=== PATIENT | male | born 1995 | race Two or more races ===

== ENCOUNTER 2024-10-18 18:31 | Inpatient (IN) | payer BC, MEDICAID ==
[~2024-10-18] VITALS: Ht 172.7 cm; Wt 76.3 kg
--- NOTE | 2024-10-18 19:45 | ED.PDOC ---
GI ASSESSMENT HPI Comments 28 y.o male presents to the ED for a chief complaint of RLQ pain that started 4 hours ago. Patient reports presents s/p coughing, felt a pressure sensation which is now sharp in nature and radiating to his right side. Patient denies any nausea, vomiting, diarrhea, fever, or chills. He denies any previous abdominal complaints or surgeries. Chief Complaint: Abdominal Pain Time Seen by MD: 19:40 Primary Care Provider: NONE Reviewed Notes: Nurses Notes, Medications, Allergies Allergies: Coded Allergies: NO KNOWN ALLERGIES (Unverified , 10/18/24) Information Source: Patient Mode of Arrival: Ambulatory Timing: Hours (4) Duration: Since onset Quality: Sharp Vomitus: None Stool: Normal Severity: Moderate Recent: None Recent Hx of: None Pain Location: RLQ Modifying Factors: Nothing Associated sign and symptoms: Abdominal Pain Past Medical History PAST MEDICAL HISTORY: Denies Surgical History: Denies all surgeries Family History Family History: Reviewed,noncontributory to illness Social History Smoker: Non-Smoker Alcohol: Denies ETOH Use Drugs: Denies Drug Use Lives In: Home Constitutional: denies: chills, diaphoresis, fatigue, fever, malaise, sweats, weakness, others EENTM: denies: blurred vision, double vision, ear bleeding, ear discharge, ear drainage, ear pain, ear ringing, eye pain, eye redness, hearing loss, mouth pain, mouth swelling, nasal discharge, nose bleeding, nose congestion, nose pain, photophobia, tearing, throat pain, throat swelling, voice changes, others Respiratory: reports: cough; denies: hemoptysis, orthopnea, SOB at rest, shortness of breath, SOB with excertion, stridor, wheezing, others Cardiovascular: denies: chest pain, dizzy spells, diaphoresis, Dyspnea on exertion, edema, irregular heart beat, left arm pain, lightheadedness, palpitations, PND, syncope, others Gastrointestinal: reports: abdominal pain; denies: abdomen distended, blood streaked bowels, constipated, diarrhea, dysphagia, difficulty swallowing, hematemesis, melena, nausea, poor appetite, poor fluid intake, rectal bleeding, rectal pain, vomiting, others Genitourinary: denies: burning, dysuria, flank pain, frequency, hematuria, incontinence, penile discharge, penile sore, pain, testicle pain, testicle swelling, urgency, others Neurological: denies: dizziness, fainting, headache, left sided numbness, left sided weakness, numbness, paresthesia, pre-existing deficit, right sided numbness, right sided weakness, seizure, speech problems, tingling, tremors, weakness, others Musculoskeletal: denies: back pain, gout, joint pain, joint swelling, muscle pain, muscle stiffness, neck pain, others Integumetry: denies: bruises, change in color, change in hair/nails, dryness, laceration, lesions, lumps, rash, wounds, others Allergic/Immunocompromised: denies: Difficulty Healing, Frequent Infections, Hives, Itching, others Hematologic/Lymphatic: denies: anemia, blood clots, easy bleeding, easy bruising, swollen glands, others Endocrine: denies: excessive hunger, excessive sweating, excessive thirst, excessive urination, flushing, intolerance to cold, intolerance to heat, unexplained weight gain, unexplained weight loss, others Psychiatric: denies: anxiety, bipolar disorder, depression, hopeless, panic disorder, schizophrenia, sleepless, suicidal, others All Other Systems: Reviewed and Negative Physical Exam General Appearance: Mild Distress HEENT: Normal ENT Inspection, Pharynx Normal, TMs Normal Neck: Full Range of Motion, Non-Tender, Normal, Normal Inspection Respiratory: Chest Non-Tender, Lungs Clear, No Accessory Muscle Use, No Respiratory Distress, Normal Breath Sounds Cardiovascular: No Edema, No JVD, No Murmur, No Gallop, Normal Peripheral Pulses, Regular Rate/Rhythm Breast Exam: Deferred Gastrointestinal: RLQ, Tenderness Genitalia: Deferred Pelvic: Deferred Rectal: Deferred Extremities: No calf tenderness, Normal capillary refill, Normal inspection, Normal range of motion, Non-tender, No pedal edema Musculoskeletal : Apperance: Normal Neurologic: Alert, band and cuff cutter II-XII nml as Tested, No Motor Deficits, Normal Affect, Normal Mood, No Sensory Deficits Cerebellar Function: Normal Reflexes: Normal Skin: Dry, Normal Color, Warm Lymphatic: No Adenopathy Was a procedure done? Was a procedure done?: No GI differential Dx Differential Diagnosis: Appendicitis, Constipation, Esophagitis, Gastroenteritis, Inflammatory BD X-Ray, Labs, Meds, VS Vital Signs Date Time Temp Pulse Resp B/P (MAP) Pulse Ox O2 Delivery O2 Flow Rate FiO2 10/18/24 18:40 98.7 75 18 127/83 (98) 100 Lab Test 10/18/24 19:44 10/18/24 18:40 Range/Units White Blood Count 8.5 4.4-10.8 10^3/uL Red Blood Count 5.04 4.5-5.90 10^6/uL Hemoglobin 15.1 13.5-17.5 g/dL Hematocrit 44.3 41.0-53.0 % Mean Corpuscular Volume 88.0 80.0-100.0 fL Mean Corpuscular Hemoglobin 30.0 28.0-32.0 pg Mean Corpuscular Hemoglobin Concent 34.1 32.0-36.0 g/dL Red Cell Distribution Width 12.8 11.8-14.3 % Platelet Count 165 140-450 10^3/uL Mean Platelet Volume 9.7 6.9-10.8 fL Neutrophils (%) (Auto) 59.9 37.0-80.0 % Lymphocytes (%) (Auto) 31.6 10.0-50.0 % Monocytes (%) (Auto) 6.4 0.0-12.0 % Eosinophils (%) (Auto) 1.5 0.0-7.0 % Basophils (%) (Auto) 0.6 0.0-2.0 % Neutrophils # (Auto) 5.1 1.6-8.6 10 ^3/uL Lymphocytes # (Auto) 2.7 0.4-5.4 10 ^3/uL Monocytes # (Auto) 0.5 0-1.3 10 ^3/uL Eosinophils # (Auto) 0.1 0-0.8 10 ^3/uL Basophils # (Auto) 0.1 0-0.2 10 ^3/uL Nucleated Red Blood Cells 0.1 % Sodium Level 139 136-145 mmol/L Potassium Level 3.7 3.5-5.1 mmol/L Chloride Level 106 98-107 mmol/L Carbon Dioxide Level 27 20-31 mmol/L Anion Gap 6 5-15 Blood Urea Nitrogen 10 9-23 mg/dL Creatinine 0.97 0.700-1.30 mg/dL Glomerular Filtration Rate Calc 109 >90 mL/min BUN/Creatinine Ratio 10.3 10.0-20.0 Serum Glucose 96 74-106 mg/dL Calcium Level 9.8 8.7-10.4 mg/dL Total Bilirubin 0.3 0.2-1.0 mg/dL Aspartate Amino Transferase (AST) 21 13-40 U/L Alanine Aminotransferase (ALT) 25 7-40 U/L Alkaline Phosphatase 87 46-116 U/L Total Protein 7.6 5.7-8.2 g/dL Albumin 4.7 3.2-4.8 g/dL Urine Color Light-yellow Yellow Urine Clarity Clear Clear Urine pH 6.0 5.0-9.0 Urine Specific [place] 1.012 1.001-1.035 Urine Protein Negative Negative Urine Ketones Negative Negative Urine Blood Negative Negative /uL Urine Nitrite Negative Negative Urine Bilirubin Negative Negative Urine Urobilinogen Normal Negative mg/dL Urine Leukocyte Esterase Negative Negative /uL Urine RBC None seen 0 - 3 /hpf Urine WBC <1 0 - 3 /hpf Urine Squamous Epithelial Cells None seen <5 /hpf Urine Bacteria None seen None Seen /hpf Urine Glucose Normal Normal mg/dL Exam: CT CT AB PEL WO CON-NO ORAL OR IV History: RLQ PAIN Comparison Study: None Technique: Multidetector spiral CT of the abdomen was performed from lung bases to pubic symphysis. Imaging was performed without IV contrast. Axial, coronal and sagittal multiplanar reformats were obtained from the axial data set by the technologist. Radiation Dose : 1. Abdomen/Pelvis: CTDIvol 8.8 mGy, DLP 466.09 mGy*cm. Findings: Evaluation of solid organs is limited due to lack of intravenous contrast use. Lung Bases: No acute or significant lung base finding. Normal heart size. No pleural or pericardial effusion. Liver: The liver is normal in size. No focal lesions. Gallbladder and Biliary Tree: Unremarkable Spleen: Unremarkable Pancreas: The pancreas is grossly normal in appearance. Adrenal Glands: Unremarkable Kidneys: Kidneys are grossly normal without calculi or hydronephrosis. Bladder: Grossly unremarkable for degree of distention. Bowel: The stomach is grossly normal in appearance. Small bowel and colon are normal in caliber and distribution. Minimal prominence of the appendix measuring up to 6 mm with trace adjacent fat stranding. Mild/ developing appendicitis can not be excluded. Ascites: Absent Lymphadenopathy: No mesenteric, retroperitoneal or periportal lymphadenopathy. Abdominal Wall and Mesentery: Moderate bilateral fat containing inguinal hernias. Vasculature: The visualized abdominal aorta is normal in size and caliber. Evaluation of abdominal and pelvic vessels is limited due to lack of intravenous contrast. Pelvic Organs: Unremarkable Musculoskeletal: No aggressive focal bony lesions, acute fractures or dislocation. IMPRESSION: 1. Minimal prominence of the appendix measuring up to 6 mm with trace adjacent fat stranding. Mild/ developing appendicitis can not be excluded. Recommend correlation with point tenderness and laboratory values. Radiation optimization: All CT scans at this facility use at least one of these dose optimization techniques: automated exposure control mA and/or kV adjustment per patient size (includes targeted exams where dose is matched to clinical indication) or iterative reconstruction. X-Ray, Labs, Meds, VS Comment CT abdomen pelvis IMPRESSION: 1. Minimal prominence of the appendix measuring up to 6 mm with trace adjacent fat stranding. Mild/ developing appendicitis can not be excluded. Recommend correlation with point tenderness and laboratory values. Radiation optimization: All CT scans at this facility use at least one of these dose optimization techniques: automated exposure control mA and/or kV adjustment per patient size (includes targeted exams where dose is matched to clinical indication) or iterative reconstruction. Patient will be admitted for developing appendicitis Patient be started IV Flagyl and Rocephin Time of 1ST Reevaluation: 19:43 Reevaluation 1ST: Unchanged Patient Education/Counseling: Diagnosis, Treatment, Prognosis Family Education/Counseling: No Family Present Departure 1 Departure Time of Disposition: 21:42 Impression: Primary Impression: Appendicitis Qualified Codes: K35.30 - Acute appendicitis with localized peritonitis, without perforation or gangrene Disposition: ADMITTED INPATIENT Condition: Fair Discharged With: Self Critical Care Note Critical Care Time?: No Stability Stability form required: No I personally scribed for JOSEPH RAMIRES FERN CUTTER ([email or web address]) on 10/18/24 at 19:45. Electronically submitted by Carolina Izaguirre ([facility]). I personally scribed for JOSEPH RAMIRES FERN CUTTER ([email or web address]) on 10/18/24 at 21:38. Electronically submitted by Carolina Izaguirre ([facility]). JOSEPH RAMIRES FERN CUTTER Oct 18, 2024 19:45
[2024-10-18 20:04] LABS: Basophils # (auto) 0.1 10 ^3/uL (0-0.2); Basophils % (auto) 0.6 % (0.0-2.0); Eosinophils # (auto) 0.1 10 ^3/uL (0-0.8); Eosinophils % (auto) 1.5 % (0.0-7.0); Hematocrit 44.3 % (41.0-53.0); Hemoglobin 15.1 g/dL (13.5-17.5); Lymphocytes # (auto) 2.7 10 ^3/uL (0.4-5.4); Lymphocytes % (auto) 31.6 % (10.0-50.0); Mean Corpuscular Hgb Conc. 34.1 g/dL (32.0-36.0); Monocytes # (auto) 0.5 10 ^3/uL (0-1.3); Monocytes % (auto) 6.4 % (0.0-12.0); Neutrophils # (auto) 5.1 10 ^3/uL (1.6-8.6); Neutrophils % (auto) 59.9 % (37.0-80.0); Nucleated Red Blood Cells % 0.1 %; Platelet Count (auto) 165 10^3/uL (140-450); Red Blood Cells 5.04 10^6/uL (4.5-5.90); Red Cell Distribution Width 12.8 % (11.8-14.3); White Blood Cell 8.5 10^3/uL (4.4-10.8)
[2024-10-18 20:09] LABS: Urine Bacteria None Seen /hpf (None Seen)
[2024-10-18 20:20] LABS: Urine Blood Negative /uL (Negative); Urine Clarity Clear (Clear); Urine Color Light-Yellow (Yellow); Urine Protein, UAD Negative (Negative); Urine Specific Gravity 1.012 (1.001-1.035); Urine Squamous Epithelial Cell None Seen /hpf (<5); Urine Urobilinogen Normal (Negative); Urine WBC <1 /hpf (0 - 3)
[2024-10-18 20:24] LABS: Alanine Aminotransferase 25 U/L (7-40); Albumin 4.7 g/dL (3.2-4.8); Alkaline Phosphatase 87 U/L (46-116); Anion Gap 6 (5-15); Aspartate Aminotransferase 21 U/L (13-40); BUN/Creatinine Ratio 10.3 (10.0-20.0); Bilirubin, Total 0.3 mg/dL (0.2-1.0); Blood Urea Nitrogen 10 mg/dL (9-23); Calcium 9.8 mg/dL (8.7-10.4); Carbon Dioxide 27 mmol/L (20-31); Chloride 106 mmol/L (98-107); Glucose 96 mg/dL (74-106); Potassium 3.7 mmol/L (3.5-5.1); Sodium 139 mmol/L (136-145); Total Protein 7.6 g/dL (5.7-8.2)
--- NOTE | 2024-10-18 21:32 | DVH ---
Exam: CT CT AB PEL WO CON-NO ORAL OR IV History: RLQ PAIN Comparison Study: None Technique: Multidetector spiral CT of the abdomen was performed from lung bases to pubic symphysis. Imaging was performed without IV contrast. Axial, coronal and sagittal multiplanar reformats were ob tained from the axial data set by the technologist. Radiation Dose : 1. Abdomen/Pelvis: CTDIvol 8.8 mGy, DLP 466.09 mGy*cm. Findings: Evaluation of solid organs is limited due to lack of intravenous contrast use. Lung Bases: No acute or significant lung base finding. Normal heart size. No pleural or pericardial effusion. Liver: The liver is normal in size. No focal lesions. Gallbladder and Biliary Tree: Unremarkable Spleen: Unremarkable Pancreas: The pancreas is grossly normal in appearance. Adrenal Glands: Unremarkable Kidneys: Kidneys are grossly normal without calculi or hydronephrosis. Bladder: Grossly unremarkable for degree of distention. Bowel: The stomach is grossly normal in appearance. Small bowel and colon are normal in caliber and d istribution. Minimal prominence of the appendix measuring up to 6 mm with trace adjacent fat strandi ng. Mild/ developing appendicitis can not be excluded. Ascites: Absent Lymphadenopathy: No mesenteric, retroperitoneal or periportal lymphadenopathy. Abdominal Wall and Mesentery: Moderate bilateral fat containing inguinal hernias. Vasculature: The visualized abdominal aorta is normal in size and caliber. Evaluation of abdominal a nd pelvic vessels is limited due to lack of intravenous contrast. Pelvic Organs: Unremarkable Musculoskeletal: No aggressive focal bony lesions, acute fractures or dislocation. IMPRESSION: 1. Minimal prominence of the appendix measuring up to 6 mm with trace adjacent fat stranding. Mild/ d eveloping appendicitis can not be excluded. Recommend correlation with point tenderness and laborator y values. Radiation optimization: All CT scans at this facility use at least one of these dose optimization mitesh hniques: automated exposure control mA and/or kV adjustment per patient size (includes targeted exam s where dose is matched to clinical indication) or iterative reconstruction.
[2024-10-18] MEDS: MORPHINE SULFATE 4 MG/ML SYR/VIAL IV ONE (22:53)
[2024-10-18] MEDS: metroNIDAZOLE 500MG/100ML 100 ML IV ONE (22:53)
[2024-10-18] MEDS: ONDANSETRON HCL 4 MG/2 ML VIAL IV ONE (22:53)
[2024-10-18] MEDS: cefTRIAXone 1GM/50ML D5W 50 ML IV ONE (22:53)
[2024-10-18 23:00] VITALS: PULSE 66; RESP 20; O2SAT 99
[2024-10-18] MEDS ORDERED: ONDANSETRON HCL 4 MG/2 ML VIAL IV PRN (23:30)
--- NOTE | 2024-10-18 23:45 | DVHHP2 ---
History of Present Illness Reason for Visit: Abdominal pain History of Present Illness 28-year-old male presents for evaluation of abdominal pain. He reports a one day history of right lower quadrant abdominal pain that is sharp in nature and radiates to his lower back. Also reports episodes of nausea. He states having intermittent chills. Denies any other acute complaints at the moment. Past Medical History Denies Past Surgical History None Family History Noncontributory Smoke: No ALCOHOL: none Drugs: None Lives: with Family Review of Systems Review of Systems Review of systems are currently negative otherwise addressed in HPI. Allergies: Coded Allergies: NO KNOWN ALLERGIES (Unverified , 10/18/24) Medications Current Medications Medications Dose Ordered Sig/Rickey Route Start Time Stop Time Status Last Admin Dose Admin Piperacillin Sod/ Tazobactam Sod 100 ml @ 25 mls/hr Q6HR IV 10/19/24 00:00 UNV Pantoprazole Sodium 40 mg DAILY IV 10/19/24 10:00 UNV Ondansetron HCl 4 mg Q4HP PRN IV 10/18/24 23:30 UNV Morphine Sulfate 2 mg Q4HPRN PRN IV 10/18/24 23:30 UNV Exam Vital Signs Vital Signs Date Time Temp Pulse Resp B/P (MAP) Pulse Ox O2 Delivery O2 Flow Rate FiO2 10/18/24 23:00 68 20 124/76 (92) 100 10/18/24 23:00 Room Air* 0 21 10/18/24 18:40 98.7 Exam Gen: 28-year-old male in mild distress Skin: Warm, dry, normal color and texture, no rash. HEENT: Normocephalic atraumatic, mucous membranes moist and pink. Neck: Cervical and supraclavicular nodes normal without enlargement, trachea is midline, thyroid gland is normal without masses. Pulmonary: Clear to auscultation and percussion bilaterally. Cardiac: Regular rate and rhythm. No murmur Abdomen: Soft, right lower quadrant tenderness, nondistended, bowel sounds present all 4 quadrants, no guarding, no rigidity, no organomegaly. Extremities: No cyanosis, clubbing, no edema Neuro: Cranial nerves II through XII grossly intact, normal affect and speech, no focal motor deficits. Labs/Xrays ORDERING PHYSICIAN: HERBIE JOHN MD PROCEDURE(s): ABPL - CT AB PEL WO CON-NO ORAL OR IV REASON: RLQ PAIN ORDER NUMBER(s): [id number], ACCESSION NUMBER(s): [id number] Exam: CT CT AB PEL WO CON-NO ORAL OR IV History: RLQ PAIN Comparison Study: None Technique: Multidetector spiral CT of the abdomen was performed from lung bases to pubic symphysis. Imaging was performed without IV contrast. Axial, coronal and sagittal multiplanar reformats were obtained from the axial data set by the technologist. Radiation Dose : 1. Abdomen/Pelvis: CTDIvol 8.8 mGy, DLP 466.09 mGy*cm. Findings: Evaluation of solid organs is limited due to lack of intravenous contrast use. Lung Bases: No acute or significant lung base finding. Normal heart size. No pleural or pericardial effusion. Liver: The liver is normal in size. No focal lesions. Gallbladder and Biliary Tree: Unremarkable Spleen: Unremarkable Pancreas: The pancreas is grossly normal in appearance. Adrenal Glands: Unremarkable Kidneys: Kidneys are grossly normal without calculi or hydronephrosis. Bladder: Grossly unremarkable for degree of distention. Bowel: The stomach is grossly normal in appearance. Small bowel and colon are normal in caliber and distribution. Minimal prominence of the appendix measuring up to 6 mm with trace adjacent fat stranding. Mild/ developing appendicitis can not be excluded. Ascites: Absent Lymphadenopathy: No mesenteric, retroperitoneal or periportal lymphadenopathy. Abdominal Wall and Mesentery: Moderate bilateral fat containing inguinal hernias. Vasculature: The visualized abdominal aorta is normal in size and caliber. Evaluation of abdominal and pelvic vessels is limited due to lack of intravenous contrast. Pelvic Organs: Unremarkable Musculoskeletal: No aggressive focal bony lesions, acute fractures or dislocation. IMPRESSION: 1. Minimal prominence of the appendix measuring up to 6 mm with trace adjacent fat stranding. Mild/ developing appendicitis can not be excluded. Recommend correlation with point tenderness and laboratory values. Radiation optimization: All CT scans at this facility use at least one of these dose optimization techniques: automated exposure control mA and/or kV adjustment per patient size (includes targeted exams where dose is matched to clinical indication) or iterative reconstruction. Labs Test 10/18/24 19:44 10/18/24 18:40 Range/Units White Blood Count 8.5 4.4-10.8 10^3/uL Red Blood Count 5.04 4.5-5.90 10^6/uL Hemoglobin 15.1 13.5-17.5 g/dL Hematocrit 44.3 41.0-53.0 % Mean Corpuscular Volume 88.0 80.0-100.0 fL Mean Corpuscular Hemoglobin 30.0 28.0-32.0 pg Mean Corpuscular Hemoglobin Concent 34.1 32.0-36.0 g/dL Red Cell Distribution Width 12.8 11.8-14.3 % Platelet Count 165 140-450 10^3/uL Mean Platelet Volume 9.7 6.9-10.8 fL Neutrophils (%) (Auto) 59.9 37.0-80.0 % Lymphocytes (%) (Auto) 31.6 10.0-50.0 % Monocytes (%) (Auto) 6.4 0.0-12.0 % Eosinophils (%) (Auto) 1.5 0.0-7.0 % Basophils (%) (Auto) 0.6 0.0-2.0 % Neutrophils # (Auto) 5.1 1.6-8.6 10 ^3/uL Lymphocytes # (Auto) 2.7 0.4-5.4 10 ^3/uL Monocytes # (Auto) 0.5 0-1.3 10 ^3/uL Eosinophils # (Auto) 0.1 0-0.8 10 ^3/uL Basophils # (Auto) 0.1 0-0.2 10 ^3/uL Nucleated Red Blood Cells 0.1 % Sodium Level 139 136-145 mmol/L Potassium Level 3.7 3.5-5.1 mmol/L Chloride Level 106 98-107 mmol/L Carbon Dioxide Level 27 20-31 mmol/L Anion Gap 6 5-15 Blood Urea Nitrogen 10 9-23 mg/dL Creatinine 0.97 0.700-1.30 mg/dL Glomerular Filtration Rate Calc 109 >90 mL/min BUN/Creatinine Ratio 10.3 10.0-20.0 Serum Glucose 96 74-106 mg/dL Calcium Level 9.8 8.7-10.4 mg/dL Total Bilirubin 0.3 0.2-1.0 mg/dL Aspartate Amino Transferase (AST) 21 13-40 U/L Alanine Aminotransferase (ALT) 25 7-40 U/L Alkaline Phosphatase 87 46-116 U/L Total Protein 7.6 5.7-8.2 g/dL Albumin 4.7 3.2-4.8 g/dL Urine Color Light-yellow Yellow Urine Clarity Clear Clear Urine pH 6.0 5.0-9.0 Urine Specific [place] 1.012 1.001-1.035 Urine Protein Negative Negative Urine Ketones Negative Negative Urine Blood Negative Negative /uL Urine Nitrite Negative Negative Urine Bilirubin Negative Negative Urine Urobilinogen Normal Negative mg/dL Urine Leukocyte Esterase Negative Negative /uL Urine RBC None seen 0 - 3 /hpf Urine WBC <1 0 - 3 /hpf Urine Squamous Epithelial Cells None seen <5 /hpf Urine Bacteria None seen None Seen /hpf Urine Glucose Normal Normal mg/dL Assessment/Plan Assessment/Plan Assessment Acute appendicitis Acute abdominal pain Plan Admit the patient to [facility] to the hospitalist Surgical consultation Zosyn IV Maintenance IV fluids Pain management NPO Continue treatment per orders. Plan discussed with: Patient My Orders Orders - RAMONE INGRAM Procedure Category Date Status Time Piperacillin-Tazob PHA 10/19/24 Logged 3.375gm (Zosyn 3.375g 00:00 Sodium Chloride 0.9% PHA 10/18/24 Logged 23:30 Pantoprazole PHA 10/19/24 Logged (Protonix) 10:00 Basic Metabolic Panel LAB 10/19/24 Verified 04:00 Admit ADMIT 10/18/24 Transmitted 23:26 Ondansetron Hcl PHA 10/18/24 Logged (Zofran) 23:30 Complete Blood Count LAB 10/19/24 Verified 04:00 Npo (Nothing By DIET 10/19/24 Transmitted Mouth) Diet Breakfast Condition: Stable BRITTANI 10/18/24 In Process 23:26 Bedrest With Bathroom BRITTANI 10/18/24 In Process Privileg 23:26 Morphine Sulfate PHA 10/18/24 Logged Injection 23:30 PTPTT LAB 10/18/24 Logged 23:26 Chest Xray 1 View XY 10/18/24 Logged 23:26 Type And Screen BBK 10/18/24 Logged 23:26 Date of Service: Oct 18, 2024 Billing Provider: RAMONE INGRAM Common Visit Codes: [id number] INP/OBS CARE (HIGH) RAMONE INGRAM Oct 18, 2024 23:45
[2024-10-19] VITALS (7 sets, daily range): BP systolic 101–125; BP diastolic 52–71; PULSE 54–72; RESP 16–20; TEMP 97.8–98.4; O2SAT 98–100
--- NOTE | 2024-10-19 00:01 | DVH ---
EXAM: XY CHEST XRAY 1 VIEW CLINICAL HISTORY: preop TECHNIQUE: Single AP view of the chest WID: COMPARISON: None FINDINGS: Lines and tubes: None Chest: The heart size and pulmonary vasculature is within normal limits. No pleural effusion, pneumothorax, or consolidation. The osseous structures are grossly intact. IMPRESSION: No acute cardiopulmonary abnormality.
[2024-10-19 00:11] LABS: INR 1.07 (0.9-1.15); Partial Thromboplastin Time 26.5 SEC (24.5-34.5); Prothrombin Time 11.3 sec (9.3-11.8)
[2024-10-19] MEDS: SODIUM CHLORIDE 0.9% 1,000 ML IV ONE (01:18)
[2024-10-19] MEDS: PIPERACILLIN-TAZOB 3.375GM 100 ML IV SCH (01:35)
[2024-10-19] MEDS: MORPHINE SULFATE INJ 2 MG/ml SYRG IV PRN (01:35)
[2024-10-19 04:04] LABS: Potassium 3.7 mmol/L (3.5-5.1); Sodium 140 mmol/L (136-145)
[2024-10-19 04:05] LABS: Anion Gap 8 (5-15); Calcium 9.1 mg/dL (8.7-10.4); Carbon Dioxide 22 mmol/L (20-31)
[2024-10-19 04:10] LABS: BUN/Creatinine Ratio 10.3 (10.0-20.0); Basophils # (auto) 0.1 10 ^3/uL (0-0.2); Basophils % (auto) 0.5 % (0.0-2.0); Eosinophils # (auto) 0.1 10 ^3/uL (0-0.8); Eosinophils % (auto) 0.9 % (0.0-7.0); Glucose 96 mg/dL (74-106); Hematocrit 41.5 % (41.0-53.0); Hemoglobin 13.9 g/dL (13.5-17.5); Lymphocytes # (auto) 2.5 10 ^3/uL (0.4-5.4); Lymphocytes % (auto) 22.7 % (10.0-50.0); Mean Corpuscular Hemoglobin 30.1 pg (28.0-32.0); Mean Corpuscular Hgb Conc. 33.4 g/dL (32.0-36.0); Mean Corpuscular Volume 89.9 fL (80.0-100.0); Monocytes # (auto) 0.8 10 ^3/uL (0-1.3); Neutrophils # (auto) 7.6 10 ^3/uL (1.6-8.6); Neutrophils % (auto) 68.9 % (37.0-80.0); Nucleated Red Blood Cells % 0.1 %; Platelet Count (auto) 153 10^3/uL (140-450); Red Blood Cells 4.62 10^6/uL (4.5-5.90)
[2024-10-19 04:13] LABS: Blood Urea Nitrogen 8 mg/dL (9-23); Chloride 110 mmol/L (98-107)
[2024-10-19] MEDS: PANTOPRAZOLE 40 MG/10 ML VIAL INJ IV SCH (09:45)
--- NOTE | 2024-10-19 13:13 | DVHPN2 ---
Changes from previous H/P or p: No Changes Objective Vitals Vital Signs Date Time Temp Pulse Resp B/P (MAP) Pulse Ox O2 Delivery O2 Flow Rate FiO2 10/19/24 10:15 50 18 105/56 10/19/24 09:02 98.3 99 98.3 10/19/24 08:00 Room Air* 0 21 Intake/Output Intake and Output 10/19/24 07:00 Intake Total 125 ml Balance 125 ml Intake IV Total 125 ml # Voids 1 Medications Current Medications Medications Dose Ordered Sig/Rickey Route Start Time Stop Time Status Last Admin Dose Admin Piperacillin Sod/ Tazobactam Sod 100 ml @ 25 mls/hr Q6HR IV 10/19/24 00:00 10/19/24 13:03 25 MLS/HR Pantoprazole Sodium 40 mg DAILY IV 10/19/24 10:00 10/19/24 09:45 40 MG Ondansetron HCl 4 mg Q4HP PRN IV 10/18/24 23:30 Morphine Sulfate 2 mg Q4HPRN PRN IV 10/18/24 23:30 10/19/24 09:45 2 MG Laboratory Results Laboratory Tests 10/19/24 03:38 Chemistry Test 10/18/24 19:44 10/19/24 03:38 Albumin 4.7 g/dL (3.2-4.8) Calcium Level 9.8 mg/dL (8.7-10.4) 9.1 mg/dL (8.7-10.4) Total Protein 7.6 g/dL (5.7-8.2) Coagulation Test 10/18/24 23:48 Prothrombin Time 11.3 sec (9.3-11.8) Prothrombin Time INR 1.07 (0.9-1.15) Activated Partial Thromboplast Time 26.5 SEC (24.5-34.5) LFT Test 10/18/24 19:44 Alanine Aminotransferase (ALT) 25 U/L (7-40) Alkaline Phosphatase 87 U/L (46-116) Aspartate Amino Transferase (AST) 21 U/L (13-40) Total Bilirubin 0.3 mg/dL (0.2-1.0) Urinalysis Test 10/18/24 18:40 Urine Color Light-yellow (Yellow) Urine Clarity Clear (Clear) Urine pH 6.0 (5.0-9.0) Urine Specific [place] 1.012 (1.001-1.035) Urine Protein Negative (Negative) Urine Ketones Negative (Negative) Urine Blood Negative /uL (Negative) Urine Nitrite Negative (Negative) Urine Bilirubin Negative (Negative) Urine Urobilinogen Normal mg/dL (Negative) Urine Leukocyte Esterase Negative /uL (Negative) Urine RBC None seen /hpf (0 - 3) Urine WBC <1 /hpf (0 - 3) Urine Squamous Epithelial Cells None seen /hpf (<5) Urine Bacteria None seen /hpf (None Seen) Urine Glucose Normal mg/dL (Normal) Labs and/or images reviewed: Labs reviewed by me, Image(s) reviewed by me Assessment/Plan Assessment/Plan Acute right lower quadrant abdominal Secondary to acute appendicitis Acute appendicitis: Zosyn pantoprazole consult for Dr. Pike who is covering for Dr. Hernandez Acute dehydration: IV fluids Plan discussed with: Patient Date of Service: Oct 19, 2024 Billing Provider: ZAINAB MANCUSO MD Common Visit Codes: [id number] INP/OBS CARE(HIGH) ZAINAB MANCUSO MD Oct 19, 2024 13:13
[2024-10-19] MEDS: ACETAMINOPHEN/CODEINE#3 (300/30mg) TAB PO PRN (15:57)
--- NOTE | 2024-10-19 16:01 | DVH ---
EXAM: XY CHEST XRAY 1 VIEW TECHNIQUE: Single frontal chest radiograph CLINICAL HISTORY: repeat x-ray requested by Dr. Hitchcock for VQ scan comparison COMPARISON: XY CHEST XRAY 1 VIEW on DOS: 10/18/24 Findings/Impression: Frontal chest radiograph demonstrates no acute osseous or superficial soft tissue abnormalities. The trachea is midline. The cardiac silhouette and mediastinum are within normal limits. No pneumothorax, pleural effusions, or consolidations.
[2024-10-20] VITALS (10 sets, daily range): BP systolic 97–112; BP diastolic 48–68; PULSE 54–89; RESP 16–19; TEMP 97.8–98.2; O2SAT 92–100
[2024-10-20] MEDS ORDERED: LIDOCAINE 2% JELLY 11ml (GLYDO) ONE (09:35)
[2024-10-20] MEDS ORDERED: BUPIVACAINE W/ EPINEPH 0.5% INJ 50ML MDV IJ ONE (09:36)
[2024-10-20] MEDS ORDERED: SUCCINYLCHOLINE CHLORIDE 20 MG/ML 10ML VIAL IV ONE (09:36)
[2024-10-20] MEDS ORDERED: MIDAZOLAM HCL 2MG/2ML 2ml VIAL (1mg/ml) ONE (09:45)
[2024-10-20] MEDS ORDERED: fentaNYL CITRATE 100 MCG/2 ML VL ONE (09:45)
[2024-10-20] MEDS ORDERED: MEPERIDINE HCL (25 MG/ML) 1ML VIAL ONE (09:45)
[2024-10-20] MEDS ORDERED: DexAMETHasone SOD PHOS 10MG/1ML VIAL INJ ONE (09:46)
[2024-10-20] MEDS ORDERED: PROPOFOL 10 MG/ML 20 ML IV ONE (09:46)
[2024-10-20] MEDS ORDERED: hydrALAZINE HCL 20 MG/ML VL IV PRN (10:45)
[2024-10-20] MEDS ORDERED: MORPHINE SULFATE 4 MG/ML SYR/VIAL IV PRN (10:45)
[2024-10-20] MEDS ORDERED: MIDAZOLAM HCL 2MG/2ML 2ml VIAL (1mg/ml) IV PRN (10:45)
[2024-10-20] MEDS ORDERED: ePHEDrine SULFATE 50 MG/ML AMP IV PRN (10:45)
[2024-10-20] MEDS ORDERED: KETOROLAC TROMETH 30 MG/ML 1ML VIAL IV ONE (10:45)
[2024-10-20] MEDS ORDERED: ONDANSETRON HCL 4 MG/2 ML VIAL IV ONE (10:45)
[2024-10-20] MEDS ORDERED: HYDROmorphone HCL 2 MG/ML VL/or syr IV PRN (10:45)
[2024-10-20] MEDS ORDERED: KETOROLAC TROMETH 30 MG/ML 1ML VIAL ONE (10:47)
[2024-10-20] MEDS ORDERED: ONDANSETRON HCL 4 MG/2 ML VIAL ONE (10:49)
[2024-10-20] MEDS ORDERED: SUGAMMADEX 200mg/2ml Vial (100MG/ML) IV ONE (10:50)
--- NOTE | 2024-10-20 11:04 | DVHPN2 ---
Reviewed: Care Plan, H&P, Labs, Medications, Previous Orders, Radiology Changes from previous H/P or p: No Changes Objective Vitals Vital Signs Date Time Temp Pulse Resp B/P (MAP) Pulse Ox O2 Delivery O2 Flow Rate FiO2 10/20/24 08:43 97.9 54 19 101/53 (69) 98 97.9 10/19/24 20:00 Room Air* 0 21 Intake/Output Intake and Output 10/20/24 07:00 Intake Total 580 ml Balance 580 ml Intake Oral 0 ml IV Total 580 ml # Voids 5 Medications Current Medications Medications Dose Ordered Sig/Rickey Route Start Time Stop Time Status Last Admin Dose Admin Piperacillin Sod/ Tazobactam Sod 100 ml @ 25 mls/hr Q6HR IV 10/19/24 00:00 10/20/24 06:10 25 MLS/HR Pantoprazole Sodium 40 mg DAILY IV 10/19/24 10:00 10/19/24 09:45 40 MG Ondansetron HCl 4 mg Q4HP PRN IV 10/18/24 23:30 Morphine Sulfate 2 mg Q4HPRN PRN IV 10/18/24 23:30 10/19/24 21:18 2 MG Acetaminophen/ Codeine Phosphate 1 tab Q4HP PRN PO 10/19/24 15:00 10/19/24 15:57 1 TAB Hydralazine HCl 5 mg Q10M PRN IV 10/20/24 10:45 10/20/24 11:36 Midazolam HCl 1 mg Q10M PRN IV 10/20/24 10:45 10/20/24 11:26 Ephedrine Sulfate 10 mg Q10M PRN IV 10/20/24 10:45 10/20/24 11:26 Hydromorphone HCl 0.5 mg Q10M PRN IV 10/20/24 10:45 10/20/24 11:26 Laboratory Results Laboratory Tests 10/19/24 03:38 Urinalysis Test 10/18/24 18:40 Urine Color Light-yellow (Yellow) Urine Clarity Clear (Clear) Urine pH 6.0 (5.0-9.0) Urine Specific [place] 1.012 (1.001-1.035) Urine Protein Negative (Negative) Urine Ketones Negative (Negative) Urine Blood Negative /uL (Negative) Urine Nitrite Negative (Negative) Urine Bilirubin Negative (Negative) Urine Urobilinogen Normal mg/dL (Negative) Urine Leukocyte Esterase Negative /uL (Negative) Urine RBC None seen /hpf (0 - 3) Urine WBC <1 /hpf (0 - 3) Urine Squamous Epithelial Cells None seen /hpf (<5) Urine Bacteria None seen /hpf (None Seen) Urine Glucose Normal mg/dL (Normal) Labs and/or images reviewed: Labs reviewed by me, Image(s) reviewed by me Assessment/Plan Assessment/Plan Acute right lower quadrant abdominal Secondary to acute appendicitis Acute appendicitis: Patient Getting appendectomy by Dr. Hernandez today Acute dehydration: IV fluids Plan discussed with: Patient My Orders Orders - ZAINAB MANCUSO MD Procedure Category Date Status Time * Surgical Consult CONS 10/19/24 Transmitted 13:30 Chest Xray 1 View XY 10/19/24 Resulted 15:26 Date of Service: Oct 20, 2024 Billing Provider: ZAINAB MANCUSO MD Common Visit Codes: [id number] INP/OBS CARE(HIGH) ZAINAB MANCUSO MD Oct 20, 2024 11:04
--- NOTE | 2024-10-20 11:15 | DVHOP ---
DATE OF SURGERY: 10/20/2024 PREOPERATIVE DIAGNOSIS: Appendicitis. POSTOPERATIVE DIAGNOSIS: Appendicitis. SURGEON: Ja Hernandez MD DOCUMENT MANAGEMENT CONSULTANT: Jarad Mendes NP ANESTHESIA: General endotracheal, Dr. Ag. PROCEDURE: Laparoscopy, laparoscopic appendectomy. DESCRIPTION OF PROCEDURE: Under general endotracheal anesthesia with the patient's skin prepped and draped, a supraumbilical incision was made and Veress needle inserted into the peritoneal cavity by the hanging drop technique in order to establish pneumoperitoneum to 15 mmHg pressure by insufflation with carbon dioxide. With the abdomen fully distended, the needle was removed and replaced with a 5 mm trocar port through which a 0-degree viewing laparoscope was inserted and under direct vision, 5 and 10 mm ports inserted through the midline abdominal wall. Laparoscopy was somewhat hampered by the patient's obesity but no unexpected pathology was encountered. The appendix was acutely inflamed and was placed against the lateral abdominal wall in an antececal position. The patient's appendix was placed on tension and traced to its confluence with the cecum at its base. The appendix and mesoappendix were divided with a Endo OZZIE stapler equipped with vascular mic and fully mobilized. Appendix was removed from the peritoneal cavity by placement in a specimen extraction bag and withdrawn through the 10 mm port site. The right lower quadrant was profusely irrigated, irrigant was aspirated. Hemostasis was meticulously inspected and found to be complete. At the termination of procedure, there was no evidence of bleeding from either the appendicectomy site or from the port sites. Instrumentation was withdrawn. Pneumoperitoneum was evacuated. Fascial defect closed using 0 Vicryl. Wounds approximated using Monocryl sutures, Dermabond glue, and Steri-Strips. The patient remained stable throughout the procedure and left the operating room following an accurate needle and sponge count. His Hannah was informed at [phone]. MD ROSEMARY Stahl/WALE TID: [id number] RECEIPT: [id number]
[2024-10-20] MEDS ORDERED: ROCURONIUM 10MG/ML 10ML VIAL IV ONE (16:59)
[2024-10-20] MEDS: PIPERACILLIN-TAZOB 3.375GM 100 ML IV SCH (19:47)
[2024-10-21 01:00] VITALS: BP 95/57; PULSE 58; RESP 18; TEMP 97.9; O2SAT 92
[2024-10-21 05:00] VITALS: BP 100/57; PULSE 65; RESP 20; TEMP 97.9; O2SAT 95
[2024-10-21 07:26] LABS: Basophils # (auto) 0 10 ^3/uL (0-0.2); Eosinophils # (auto) 0 10 ^3/uL (0-0.8); Eosinophils % (auto) 0.1 % (0.0-7.0); Hematocrit 41.6 % (41.0-53.0); Lymphocytes # (auto) 1.3 10 ^3/uL (0.4-5.4); Lymphocytes % (auto) 10.5 % (10.0-50.0); Mean Corpuscular Hemoglobin 29.8 pg (28.0-32.0); Mean Corpuscular Hgb Conc. 33.7 g/dL (32.0-36.0); Mean Corpuscular Volume 88.4 fL (80.0-100.0); Monocytes # (auto) 0.7 10 ^3/uL (0-1.3); Monocytes % (auto) 5.6 % (0.0-12.0); Neutrophils # (auto) 10.5 10 ^3/uL (1.6-8.6); Neutrophils % (auto) 83.8 % (37.0-80.0); Platelet Count (auto) 169 10^3/uL (140-450); Red Blood Cells 4.71 10^6/uL (4.5-5.90); Red Cell Distribution Width 13.2 % (11.8-14.3); White Blood Cell 12.5 10^3/uL (4.4-10.8)
[2024-10-21 08:53] VITALS: BP 96/57; PULSE 50; RESP 20; TEMP 98; O2SAT 96
--- NOTE | 2024-10-21 11:14 | DVHPN2 ---
Progress Note Date Seen: Oct 21, 2024 Has the PT tested + for MRSA If YES, has PT been informed?: No Medical Necessity Reason Pt with a Central, PICC or Fol: No Objective vital signs Vital Sign Date Time Temp Pulse Resp B/P (MAP) Pulse Ox O2 Delivery O2 Flow Rate FiO2 10/21/24 08:53 98.0 50 20 96/57 (70) 96 98.0 10/21/24 08:00 Room Air* 0 21 Total Intake and Output 10/20/24 10/20/24 10/21/24 15:00 23:00 07:00 Intake Total 100 ml 880 ml 895 ml Output Total 600 ml Balance 100 ml 880 ml 295 ml medications Current Medications Medications Dose Ordered Sig/Rickey Route Start Time Stop Time Status Last Admin Dose Admin Pantoprazole Sodium 40 mg DAILY IV 10/19/24 10:00 10/21/24 09:00 40 MG Ondansetron HCl 4 mg Q4HP PRN IV 10/18/24 23:30 Morphine Sulfate 2 mg Q4HPRN PRN IV 10/18/24 23:30 10/19/24 21:18 2 MG Acetaminophen/ Codeine Phosphate 1 tab Q4HP PRN PO 10/19/24 15:00 10/20/24 19:52 1 TAB Piperacillin Sod/ Tazobactam Sod 100 ml @ 25 mls/hr Q6H IV 10/20/24 19:30 10/21/24 09:00 25 MLS/HR laboratory and microbiology Laboratory Tests 10/21/24 06:54 10/19/24 03:38 Test 10/19/24 03:38 Range/Units Serum Glucose 96 74-106 mg/dL Problem List/Assessment/Plan Problem List/Assessment/Plan 10/21/24doing well, no nausea, no vomiting, wound clean and well approximated,OK to discharge Plan discussed with: Patient Dietary Evaluation Review Comments: Advance pt diet when medically feasible Expected Outcomes/Goals: F/U in 2-3 days TY WARREN MD Oct 21, 2024 11:14
[2024-10-21] MEDS ORDERED: METR-344 PO (11:31)
[2024-10-21] MEDS ORDERED: ACE3T PO (11:31)
[2024-10-21] MEDS ORDERED: LEVO500T91 PO (11:31)
--- NOTE | 2024-10-21 11:34 | DVHPN2 ---
Reviewed: Care Plan, H&P, Labs, Medications, Previous Orders, Radiology Changes from previous H/P or p: No Changes Objective Vitals Vital Signs Date Time Temp Pulse Resp B/P (MAP) Pulse Ox O2 Delivery O2 Flow Rate FiO2 10/21/24 08:53 98.0 50 20 96/57 (70) 96 98.0 10/21/24 08:00 Room Air* 0 21 Intake/Output Intake and Output 10/21/24 07:00 Intake Total 1875 ml Output Total 600 ml Balance 1275 ml Intake Oral 1475 ml IV Total 400 ml Output Urine Total 600 ml # Voids 3 Medications Current Medications Medications Dose Ordered Sig/Rickey Route Start Time Stop Time Status Last Admin Dose Admin Pantoprazole Sodium 40 mg DAILY IV 10/19/24 10:00 10/21/24 09:00 40 MG Ondansetron HCl 4 mg Q4HP PRN IV 10/18/24 23:30 Morphine Sulfate 2 mg Q4HPRN PRN IV 10/18/24 23:30 10/19/24 21:18 2 MG Acetaminophen/ Codeine Phosphate 1 tab Q4HP PRN PO 10/19/24 15:00 10/20/24 19:52 1 TAB Piperacillin Sod/ Tazobactam Sod 100 ml @ 25 mls/hr Q6H IV 10/20/24 19:30 10/21/24 09:00 25 MLS/HR Laboratory Results Laboratory Tests 10/19/24 03:38 10/21/24 06:54 Urinalysis Test 10/18/24 18:40 Urine Color Light-yellow (Yellow) Urine Clarity Clear (Clear) Urine pH 6.0 (5.0-9.0) Urine Specific [place] 1.012 (1.001-1.035) Urine Protein Negative (Negative) Urine Ketones Negative (Negative) Urine Blood Negative /uL (Negative) Urine Nitrite Negative (Negative) Urine Bilirubin Negative (Negative) Urine Urobilinogen Normal mg/dL (Negative) Urine Leukocyte Esterase Negative /uL (Negative) Urine RBC None seen /hpf (0 - 3) Urine WBC <1 /hpf (0 - 3) Urine Squamous Epithelial Cells None seen /hpf (<5) Urine Bacteria None seen /hpf (None Seen) Urine Glucose Normal mg/dL (Normal) Labs and/or images reviewed: Labs reviewed by me, Image(s) reviewed by me Assessment/Plan Assessment/Plan Acute right lower quadrant abdominal pain Sepsis Secondary to acute appendicitis Acute appendicitis: Status post laparoscopic appendectomy by Dr. Hernandez on 10/20/2024 Acute dehydration: IV fluids Plan discussed with: Patient My Orders Orders - ZAINAB MANCUSO MD Procedure Category Date Status Time * Customer Consultant CONS 10/20/24 Transmitted Consult Date of Service: Oct 21, 2024 Billing Provider: ZAINAB MANCUSO MD Common Visit Codes: [id number] INP/OBS CARE(HIGH) ZAINAB MANCUSO MD Oct 21, 2024 11:34
--- NOTE | 2024-10-21 11:37 | DVHDS2 ---
Discharge Summary Date of Admission Oct 18, 2024 at 23:26 Date of Discharge: Oct 21, 2024 Admitting Diagnosis Acute appendicitis Wounds: Laparoscopic appendectomy Labs/Diagnostic Data: Laboratory Results Test 10/21/24 06:54 10/19/24 03:38 10/18/24 23:48 10/18/24 19:44 White Blood Count 12.5 10^3/uL (4.4-10.8) Red Blood Count 4.71 10^6/uL (4.5-5.90) Hemoglobin 14.0 g/dL (13.5-17.5) Hematocrit 41.6 % (41.0-53.0) Mean Corpuscular Volume 88.4 fL (80.0-100.0) Mean Corpuscular Hemoglobin 29.8 pg (28.0-32.0) Mean Corpuscular Hemoglobin Concent 33.7 g/dL (32.0-36.0) Red Cell Distribution Width 13.2 % (11.8-14.3) Platelet Count 169 10^3/uL (140-450) Mean Platelet Volume 9.9 fL (6.9-10.8) Neutrophils (%) (Auto) 83.8 % (37.0-80.0) Lymphocytes (%) (Auto) 10.5 % (10.0-50.0) Monocytes (%) (Auto) 5.6 % (0.0-12.0) Eosinophils (%) (Auto) 0.1 % (0.0-7.0) Basophils (%) (Auto) 0.0 % (0.0-2.0) Neutrophils # (Auto) 10.5 10 ^3/uL (1.6-8.6) Lymphocytes # (Auto) 1.3 10 ^3/uL (0.4-5.4) Monocytes # (Auto) 0.7 10 ^3/uL (0-1.3) Eosinophils # (Auto) 0 10 ^3/uL (0-0.8) Basophils # (Auto) 0 10 ^3/uL (0-0.2) Nucleated Red Blood Cells 0.0 % Sodium Level 140 mmol/L (136-145) Potassium Level 3.7 mmol/L (3.5-5.1) Chloride Level 110 mmol/L (98-107) Carbon Dioxide Level 22 mmol/L (20-31) Anion Gap 8 (5-15) Blood Urea Nitrogen 8 mg/dL (9-23) Creatinine 0.78 mg/dL (0.700-1.30) Glomerular Filtration Rate Calc 125 mL/min (>90) BUN/Creatinine Ratio 10.3 (10.0-20.0) Serum Glucose 96 mg/dL (74-106) Calcium Level 9.1 mg/dL (8.7-10.4) Prothrombin Time 11.3 sec (9.3-11.8) Prothrombin Time INR 1.07 (0.9-1.15) Activated Partial Thromboplast Time 26.5 SEC (24.5-34.5) Total Bilirubin 0.3 mg/dL (0.2-1.0) Aspartate Amino Transferase (AST) 21 U/L (13-40) Alanine Aminotransferase (ALT) 25 U/L (7-40) Alkaline Phosphatase 87 U/L (46-116) Total Protein 7.6 g/dL (5.7-8.2) Albumin 4.7 g/dL (3.2-4.8) Test 10/18/24 18:40 Urine Color Light-yellow (Yellow) Urine Clarity Clear (Clear) Urine pH 6.0 (5.0-9.0) Urine Specific [place] 1.012 (1.001-1.035) Urine Protein Negative (Negative) Urine Ketones Negative (Negative) Urine Blood Negative /uL (Negative) Urine Nitrite Negative (Negative) Urine Bilirubin Negative (Negative) Urine Urobilinogen Normal mg/dL (Negative) Urine Leukocyte Esterase Negative /uL (Negative) Urine RBC None seen /hpf (0 - 3) Urine WBC <1 /hpf (0 - 3) Urine Squamous Epithelial Cells None seen /hpf (<5) Urine Bacteria None seen /hpf (None Seen) Urine Glucose Normal mg/dL (Normal) Other Laboratory Tests 10/21/24 06:54 10/19/24 03:38 Brief Hx & Hospital Course: Admitted for acute appendicitis. Underwent laparoscopic appendectomy by Dr. Hernandez. Treated with antibiotics pain medications IV fluids at the time of discharge patient is afebrile abdomen is soft stable vital signs passing gas cleared for discharge by surgeon. Prescription transmitted to the pharmacy he will follow up with the surgeon in 10 days .off work for one week Consults/Reason for consult Surgeon Fischl Operations or Procedures Laparoscopic appendectomy Condition at Discharge: Fair Final Diagnosis/Problems List Acute right lower quadrant abdominal pain Sepsis Secondary to acute appendicitis Acute appendicitis: Status post laparoscopic appendectomy by Dr. Hernandez on 10/20/2024 Discharge Disposition: Home Discharge Instruct/Medications Diet: Regular Activity: See Comment Activity comment: Off work for one week Follow Up/Referral: Follow up with surgeon Dr. Hernandez in 10 days Follow up with the primary Dr in one week Medications: Levaquin Flagyl Tylenol No. 3 Transmitted to [facility] 39 (Time taken for discharge summary 39 minutes) Discharge Statement: "Patient was advised to return to the ER or call 911 if any headaches, dizziness, shortness of breath, chest pain, abdominal pain, bleeding, fevers, or worsening of medical condition. Patient was counseled about treatment plan, medications, possible side effects, patientverbalized understanding. All questions were answered to the best of my ability. This discharge took greater then 30 minutes in planning, reviewing documentation, counseling the patient, and discussing with other team members." ASSESSMENT ASSESSMENT Hospital Course Resolved Assessment Acute right lower quadrant abdominal pain Sepsis Secondary to acute appendicitis Acute appendicitis: Status post laparoscopic appendectomy by Dr. Hernandez on 10/20/2024 Date of Service: Oct 21, 2024 Billing Provider: ZAINAB MANCUSO MD Common Visit Codes: [id number] DISCH DAY >30min ZAINAB MANCUSO MD Oct 21, 2024 11:37
[2024-10-21 12:46] VITALS: BP 102/59; PULSE 59; RESP 20; TEMP 97.7; O2SAT 96
[2024-10-21 17:23] VITALS: BP 101/56; PULSE 61; RESP 20; TEMP 98; O2SAT 98
== END 2024-10-21 17:00 | disposition home or self-care (01) | DRG 854 ==
LOC: ER 18:36 → OVERFLOW 23:26 → WEST WING 10-19 05:15
PROVIDERS: ADMIT Family Medicine; ATTEND Family Medicine
PROC: 0DTJ4ZZ Resection of Appendix, Percutaneous Endoscopic Approach (ICD-10-PCS; principal; 2024-10-20 10:15)
DX: A41.9 Sepsis, unspecified organism (principal); K35.80 Unspecified acute appendicitis; E86.0 Dehydration; E66.9 Obesity, unspecified; Z68.25 Body mass index [BMI] 25.0-25.9, adult
CPT/HCPCS: 36415; 71045; 74176; 80048; 80053; 81001; 85025; 85610; 85730; 86850; 86900; 86901; 96365; 96375; G0378; J0330; J1100; J1885; J2250; J2405; J2470; J2543; J2704; J3490

== ENCOUNTER → 2024-11-30 | Outpatient (CLI) | payer BC ==
[~2024-11-30] MED LIST: ACE3T PO; LEVO500T91 PO; METR-344 PO
[2024-11-30 09:16] LABS: Basophils # (auto) 0 10 ^3/uL (0-0.2); Basophils % (auto) 0.3 % (0.0-2.0); Eosinophils # (auto) 0.1 10 ^3/uL (0-0.8); Hematocrit 46.4 % (41.0-53.0); Hemoglobin 15.6 g/dL (13.5-17.5); Lymphocytes # (auto) 2.5 10 ^3/uL (0.4-5.4); Lymphocytes % (auto) 36.3 % (10.0-50.0); Mean Corpuscular Hemoglobin 29.7 pg (28.0-32.0); Mean Corpuscular Hgb Conc. 33.7 g/dL (32.0-36.0); Mean Corpuscular Volume 88.2 fL (80.0-100.0); Monocytes # (auto) 0.5 10 ^3/uL (0-1.3); Monocytes % (auto) 7.1 % (0.0-12.0); Neutrophils # (auto) 3.7 10 ^3/uL (1.6-8.6); Neutrophils % (auto) 54.3 % (37.0-80.0); Platelet Count (auto) 159 10^3/uL (140-450); Red Blood Cells 5.26 10^6/uL (4.5-5.90); White Blood Cell 6.8 10^3/uL (4.4-10.8)
[2024-11-30 10:00] LABS: Albumin 4.8 g/dL (3.2-4.8); Alkaline Phosphatase 66 U/L (46-116); Anion Gap 7 (5-15); Aspartate Aminotransferase 19 U/L (13-40); BUN/Creatinine Ratio 10.7 (10.0-20.0); Blood Urea Nitrogen 11 mg/dL (9-23); Calcium 10.1 mg/dL (8.7-10.4); Carbon Dioxide 26 mmol/L (20-31); Chloride 105 mmol/L (98-107); Cholesterol 166 mg/dL (< 200); Glucose 101 mg/dL (74-106); Potassium 4.3 mmol/L (3.5-5.1); Sodium 138 mmol/L (136-145); Triglycerides 131 mg/dL (< 150)
[2024-11-30 10:01] LABS: Alanine Aminotransferase 42 U/L (7-40); Bilirubin, Total 0.5 mg/dL (0.2-1.0); HDL Cholesterol 39 mg/dL (40-59); LDL Cholesterol 116 mg/dL (< 100); Total Protein 7.4 g/dL (5.7-8.2)
== END | disposition home or self-care (01) ==
LOC: LAB 08:50
PROVIDERS: ATTEND Nurse Practitioner Family
DX: Z00.01 Encounter for general adult medical examination with abnormal findings (principal); E78.5 Hyperlipidemia, unspecified
CPT/HCPCS: 36415; 80053; 80061; 84443; 85025